=== PATIENT | male | born 1985 | race Two or more races ===

== ENCOUNTER 2019-08-27 09:40 | Emergency (ER) | payer OTHER ==
[~2019-08-27] VITALS: Ht 167.6 cm; Wt 75.2 kg
[2019-08-27 09:40] VITALS: BP 130/82
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
[2019-08-27] MEDS ORDERED: IBUP80TA PO (10:44)
== END 2019-08-27 11:03 | disposition home or self-care (01) ==
LOC: M ED 09:40
DX: S13.4XXA Sprain of ligaments of cervical spine, initial encounter (principal); V49.40XA Driver injured in collision with unspecified motor vehicles in traffic accident, initial encounter; M54.5 Low back pain; Y92.410 Unspecified street and highway as the place of occurrence of the external cause; Y93.9 Activity, unspecified; Y99.9 Unspecified external cause status; Z79.899 Other long term (current) drug therapy